=== PATIENT | male | born 1995 ===

== ENCOUNTER 2017-02-27 19:08 | Emergency (ER) | payer BC ==
[2017-02-27 19:52] VITALS: BP 111/62
--- NOTE | 2017-02-27 20:36 | ED ---
Throat Pain/Nasal Congestion - HPI Summary HPI Summary: 21 yr old with complaint of sore throat just today. Onset this morning. Denies fever or chills. He came here because he saw white patches on his throat. He states he has had some swollen lymph nodes in anterior neck. He saw his doctor yesterday for physical and will be following up with him. Pain in throat moderate. - History of Current Complaint Chief Complaint: UCRespiratory Time Seen by Provider: 02/27/17 20:25 - Allergies/Home Medications Allergies/Adverse Reactions: Allergies Allergy/AdvReac Type Severity Reaction Status Date / Time No Known Allergies Allergy Verified 02/27/17 19:46 Home Medications: Home Medications NK [No Home Medications Reported] 02/27/17 [History Confirmed 02/27/17] PMH/Surg Hx/FS Hx/Imm Hx Previously Healthy: Yes Endocrine/Hematology History: Denies: Hx Diabetes, Hx Thyroid Disease Cardiovascular History: Denies: Hx Hypercholesterolemia, Hx Hypertension, Hx Peripheral Vascular Disease Musculoskeletal History: Denies: Hx Arthritis, Hx Osteoporosis Sensory History: Denies: Hx Cataracts, Hx Contacts or Glasses, Hx Glaucoma Opthamlomology History: Denies: Hx Cataracts, Hx Contacts or Glasses, Hx Glaucoma Neurological History: Denies: Hx Headaches, Hx Seizures, Hx Transient Ischemic Attacks (TIA) Psychiatric History: Denies: Hx Anxiety, Hx Depression - Surgical History Surgery Procedure, Year, and Place: September 2012 Hip arthroscopy. TEF surgery as Infectious Disease History: No Infectious Disease History: Denies: Traveled Outside the [place] in Last 30 Days - Family History Known Family History: Positive: None - Social History Alcohol Use: Occasionally Hx Substance Use: No Substance Use Type: Reports: None Hx Tobacco Use: No Smoking Status (MU): Never Smoked Tobacco Review of Systems Constitutional: Negative Positive: Sore Throat All Other Systems Reviewed And Are Negative: Yes Physical Exam Triage Information Reviewed: Yes Vital Signs On Initial Exam: Initial Vitals Temp Pulse Resp BP Pulse Ox 98.6 F 77 18 111/62 100 02/27/17 19:46 02/27/17 19:46 02/27/17 19:46 02/27/17 19:46 02/27/17 19:46 Vital Signs Reviewed: Yes Appearance: Positive: Well-Appearing, No Pain Distress Skin: Positive: Warm Head/Face: Positive: Normal Head/Face Inspection Eyes: Positive: EOMI ENT: Positive: Pharyngeal erythema, TMs normal, Tonsillar exudate. Negative: Nasal congestion, Trismus, Muffled/hoarse voice Dental: Positive: Cervical Lymphadenopathy - anterior superior and submetal Neck: Positive: Supple Respiratory/Lung Sounds: Positive: Clear to Auscultation, Breath Sounds Present Cardiovascular: Positive: Normal, RRR. Negative: Murmur Abdomen Description: Positive: Nontender Musculoskeletal: Positive: Normal, Strength/ROM Intact Neurological: Positive: Sensory/Motor Intact, Alert, Oriented to Person Place, Time, CN Intact II-III, Normal Gait Psychiatric: Positive: Normal Diagnostics - Vital Signs Vital Signs Temp Pulse Resp BP Pulse Ox 02/27/17 19:46 98.6 F 77 18 111/62 100 - Laboratory Lab Results: Lab Results 02/27/17 Range/Units 20:07 Group A Strep Rapid Negative (Negative) Lab Statement: Any lab studies that have been ordered have been reviewed, and results considered in the medical decision making process. EENT Course/Dx - Course Course Of Treatment: 21 yr old with sore throat and negative strep rapid. He will follow up with his PMD for the lympadenopathy as he and his PCP are already aware. - Diagnoses Provider Diagnoses: Pharyngitis, Lymphadenopathy of head and neck region Discharge - Discharge Plan Condition: Good Disposition: HOME Patient Education Materials: Pharyngitis (ED), Lymphadenopathy (ED) Referrals: Javi Alexandre DO [Primary Care Provider] - 5 Days
== END 2017-02-27 20:35 | disposition home or self-care (01) ==
LOC: UCCORT 19:08
DX: J02.9 Acute pharyngitis, unspecified (principal); R59.1 Generalized enlarged lymph nodes
CPT/HCPCS: 87651; 99201; G0463